=== PATIENT | female | born 1935 | race Caucasian/White ===

== ENCOUNTER 2019-04-14 11:10 | Emergency (ER) | payer MEDICARE ==
[2019-04-14 12:27] VITALS: BP 141/60
--- NOTE | 2019-04-14 13:02 | UC ---
Hip/Pelvis Pain - HPI Summary HPI Summary: s/p right hip replacement surgery back in October in [place] pt. had multiple complications after her surgery . requesting PT order so she can cont. 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 Onset/Duration: Gradual Onset, Lasting Weeks - 25, Still Present Timing: Constant Severity Initially: Moderate Severity Currently: Moderate Pain Intensity: 4 Location: Discrete At: - right hip Character Of Pain: Aching Aggravating Factor(s): Movement Alleviating Factor(s): Other - physical therapy - Allergies/Home Medications Allergies/Adverse Reactions: Allergies Allergy/AdvReac Type Severity Reaction Status Date / Time sulfamethoxazole Allergy Diarrhea Verified 04/14/19 12:27 [From Bactrim] trimethoprim [From Bactrim] Allergy Diarrhea Verified 04/14/19 12:27 Home Medications: Home Medications Atorvastatin Calcium [Lipitor] 20 mg PO DAILY 04/14/19 [History Confirmed ] Naproxen [Naproxen 500 mg tab] 1,000 mg PO DAILY 04/14/19 [History Confirmed ] Olmesartan/Amlodipin/Hcthiazid [Tribenzor 40-10-12.5 mg Tablet] 1 each PO DAILY 04/14/19 [History Confirmed 04/14/19] Oxycodone HCl 10 mg PO TID 04/14/19 [History Confirmed 04/14/19] Zolpidem TAB* [Ambien TAB*] 5 mg PO BEDTIME PRN 04/14/19 [History Confirmed ] PMH/Surg Hx/FS Hx/Imm Hx Cardiovascular History: Hypertension Cancer History: Breast Cancer - Surgical History Surgical History: Yes Surgery Procedure, Year, and Place: hyster. shoulders-bone spurs. choley. rt knee replaced. left and right hip replaced - Family History Known Family History: Positive: Non-Contributory - Social History Alcohol Use: Rare Substance Use Type: None Smoking Status (MU): Former Smoker Length of Time of Smoking/Using Tobacco: 28 years ago Review of Systems All Other Systems Reviewed And Are Negative: Yes Constitutional: Positive: Negative Skin: Positive: Negative Eyes: Positive: Negative ENT: Positive: Negative Is Patient Immunocompromised?: No Physical Exam Triage Information Reviewed: Yes Appearance: Well-Appearing, No Pain Distress, Well-Nourished Vital Signs: Initial Vital Signs Temp 97.9 F 04/14/19 12:20 Pulse 65 04/14/19 12:20 Resp 18 04/14/19 12:20 BP 141/60 04/14/19 12:20 Pulse Ox 100 04/14/19 12:20 Vital Signs Reviewed: Yes Eye Exam: Normal Eyes: Positive: Conjunctiva Clear ENT Exam: Normal ENT: Positive: Normal ENT inspection, Hearing grossly normal, Pharynx normal Dental Exam: Normal Neck exam: Normal Neck: Positive: Supple, Nontender, No Lymphadenopathy Respiratory Exam: Normal Respiratory: Positive: Chest non-tender, Lungs clear, Normal breath sounds Cardiovascular Exam: Normal Cardiovascular: Positive: RRR, No Murmur, Pulses Normal Musculoskeletal: Positive: Other: - right hip : no swelling , no erythema, no tenderness, limited ROM on flexion Hip Injury Course/Dx - Differential Dx/Diagnosis Provider Diagnosis: Right hip pain Discharge - Sign-Out/Discharge Documenting (check all that apply): Patient Departure All imaging exams completed and their final reports reviewed: No Studies - Discharge Plan Condition: Stable Disposition: HOME Patient Education Materials: Joint Replacement Surgery (DC) Referrals: Non Staff,Doctor [Primary Care Provider] - Additional Instructions: start pt sonya follow up with your ortho - Billing Disposition and Condition Condition: STABLE Disposition: Home
== END 2019-04-14 13:04 | disposition home or self-care (01) ==
LOC: UCCORT 11:10
DX: M25.551 Pain in right hip (principal); Z96.643 Presence of artificial hip joint, bilateral; I10 Essential (primary) hypertension; Z85.3 Personal history of malignant neoplasm of breast; Z87.891 Personal history of nicotine dependence
CPT/HCPCS: 99201; G0463